=== PATIENT | male | born 1950 | race Caucasian/White ===

== ENCOUNTER 2019-03-12 09:19 | Inpatient (IN) | payer MEDICARE ==
[~2019-03-12] VITALS: Ht 185.4 cm; Wt 74.0 kg
[2019-03-12 10:00] LABS: BASOPHILS # (AUTO) 0.1 X10'3 (0-0.2); BASOPHILS % (AUTO) 1.3 % (0-1); EOSINOPHILS # (AUTO) 0.2 X10'3 (0-0.9); EOSINOPHILS % (AUTO) 3.1 % (0-6); HEMATOCRIT 40.9 % (42.0-52.0); HEMOGLOBIN 14.2 g/dl (14.0-17.9); LYMPHOCYTES # (AUTO) 2.8 X10'3 (1.1-4.8); LYMPHOCYTES % (AUTO) 37.4 % (21-51); MEAN CORPUSCULAR HEMOGLOBIN 31.4 PG (27.0-31.0); MEAN CORPUSCULAR HGB CONC 34.7 g/dL (33.0-36.5); MEAN CORPUSCULAR VOLUME 90.5 FL (78-98); MEAN PLATELET VOLUME 7.4 FL (7.4-10.4); MONOCYTES # (AUTO) 0.5 X10'3 (0-0.9); MONOCYTES % (AUTO) 6.2 % (2-12); PLATELET COUNT 377 X10'3 (140-440); RED BLOOD COUNT 4.52 X10'6 (4.70-6.10); RED CELL DISTRIBUTION WIDTH 12.4 % (11.5-14.5); WHITE BLOOD COUNT 7.6 X10'3 (4.5-11.0)
[2019-03-12 10:12] LABS: PARTIAL THROMBOPLASTIN TIME 34 SECONDS (22-32)
[2019-03-12 10:14] LABS: ALANINE AMINOTRANSFERASE 26 U/L (12-78); ALBUMIN 3.8 G/DL (3.4-5.0); ALKALINE PHOSPHATASE 96 IU/L (46-116); ANION GAP 8 (8-16); ASPARTATE AMINO TRANSFERASE 27 U/L (10-37); BILIRUBIN,TOTAL 0.5 MG/DL (0.1-1.0); BLOOD UREA NITROGEN 16 MG/DL (7-18); BUN/CREATININE RATIO 12.5 (5.4-32.0); CALCIUM 8.7 MG/DL (8.5-10.1); CHLORIDE 91 MMOL/L (99-107); CREATININE 1.28 MG/DL (0.60-1.10); GLUCOSE 88 MG/DL (70-104); POTASSIUM 3.2 MMOL/L (3.5-5.1); SODIUM 126 MMOL/L (135-145); TOTAL PROTEIN 7.7 G/DL (6.4-8.2); eGFR 56 ML/MIN
[2019-03-12] MEDS ORDERED: normal saline 1000ML IV soln IV ONE (10:25)
[2019-03-12] MEDS ORDERED: dexamethasone sod phosphate 10mg/ml inj IV STA (11:05)
[2019-03-12] MEDS ORDERED: diphenhydrAMINE 50 mg/ml inj IV ONE (11:05)
[2019-03-12] MEDS ORDERED: proCHLORperazine 10 MG/2 ml inj IV ONE (11:05)
[2019-03-12] MEDS ORDERED: potassium Cl oral solution 20 MEQ/15 ML PO ONE (11:55)
[2019-03-12] MEDS ORDERED: LEVO50TA8 PO (12:12)
[2019-03-12] MEDS ORDERED: PRED5TAB PO (12:12)
[2019-03-12] MEDS ORDERED: FERR325T32 PO (12:12)
[2019-03-12] MEDS ORDERED: potassium Cl 40MEQ/NS 500ml 500 ML IV PRN ×2 (12:35)
[2019-03-12] MEDS ORDERED: magnesium Cl slow-release 64mg tablet PO PRN (12:35)
[2019-03-12] MEDS ORDERED: HYDROcodone/acetaminophen 5mg/325mg tablet PO PRN (12:35)
[2019-03-12] MEDS ORDERED: morphine 2 MG/ML inj. syringe IV PRN (12:35)
[2019-03-12] MEDS ORDERED: ondansetron/PF 4mg/2ml inj IV PRN (12:35)
[2019-03-12] MEDS ORDERED: diphenhydrAMINE 25mg capsule PO PRN (12:35)
[2019-03-12] MEDS ORDERED: magnesium 4gm in 100ml NS 100 ML IV PRN (12:35)
[2019-03-12] MEDS: K and/or MAG REPLACEMENT MC SCH (12:35)
[2019-03-12] MEDS ORDERED: mag hydrox/Alum hydrox/simeth 30ml oral suspension PO PRN (12:35)
[2019-03-12] MEDS ORDERED: magnesium hydroxide 30ml (MOM) UD suspension PO PRN (12:35)
[2019-03-12] MEDS ORDERED: acetaminophen 325mg tablet PO PRN ×2 (12:35)
[2019-03-12] MEDS ORDERED: potassium Cl 20 mEq SR tablet PO PRN ×2 (12:35)
[2019-03-12] MEDS ORDERED: bisacodyl 10mg suppository rectal RC PRN (12:35)
[2019-03-12] MEDS ORDERED: magnesium 2GM in 50ml NS 50 ML IV PRN (12:35)
[2019-03-12] MEDS ORDERED: HYDROcodone/acetaminophen 10/325mg tab PO PRN (12:35)
[2019-03-12] MEDS ORDERED: iohexol 300mg/ml 100ml inj. ONE (12:49)
[2019-03-12] MEDS: hydrocortisone sod succ/PF 100mg/2ml inj. IV SCH ×2 (13:09→19:36)
[2019-03-12 13:17] LABS: HEMOGLOBIN A1C 5.4 % (4.5-6.2)
--- NOTE | 2019-03-12 13:56 | NUR ---
Nurse at lunch, unable to give report. nurse to call down to ER for report.
[2019-03-12] MEDS ORDERED: hydrocortisone sod succ/PF 100mg/2ml inj. IV SCH (14:00)
[2019-03-12 14:16] LABS: CLARITY,URINE CLEAR (Clear); COLOR,URINE YELLOW (Yellow); GLUCOSE, URINE NEGATIVE (Neg); KETONES,URINE NEGATIVE (Neg); LEUKOCYTE ESTERASE ,URINE NEGATIVE (Neg); NITRITES, URINE NEGATIVE (Neg); OCCULT BLOOD,URINE TRACE-INTACT (Neg); PROTEIN,URINE NEGATIVE (Neg); UA COLLECTION TYPE CLN CATCH MIDSTREAM; UROBILINOGEN,URINE 0.2 E.U/dL (0.2-1.0)
[2019-03-12 14:23] LABS: MUCUS STRANDS FEW /LPF (Neg); SQUAMOUS EPITHELIAL CELL,UR FEW /LPF (FEW)
[2019-03-12 14:24] LABS: BACTERIA,URINE FEW /HPF (Neg); RBC,URINE 0-2 /HPF (0-2); WBC,URINE 0-4 /HPF (0-4)
--- NOTE | 2019-03-12 15:01 | NUR ---
Patient in room [facility]. I have received report from jaret WATTERS and had the opportunity to ask questions and assume patient care.
[2019-03-12 15:02] VITALS: BP 142/63
[2019-03-12] MEDS: normal saline 1000ml 1,000 ML IV SCH (15:28)
[2019-03-12 15:30] VITALS: BP 125/73
[2019-03-12 17:48] VITALS: BP_SYST 132; BP_SYST 138; BP_SYST 143; BP_DIAS 77; BP_DIAS 80; BP_DIAS 83
--- NOTE | 2019-03-12 18:30 | NUR ---
Patient in room [facility]. I have received report from Viry WATTERS and had the opportunity to ask questions and assume patient care.
--- NOTE | 2019-03-12 18:30 | NUR ---
Patient in room [facility]. I have received report from JANENE Baires and had the opportunity to ask questions and assume patient care. Addendum: 03/13/19 at 0001 by Last Huber RN Amended: Links added.
--- NOTE | 2019-03-12 18:42 | NUR ---
patient went for CT scan with contrast. saw DR Dorantes. c/o multiple voids. Slight burning. Dr Dorantes informed. Report given to Vikas WATTERS
[2019-03-12] MEDS ORDERED: meclizine 12.5mg tablet PO ONE (18:45)
[2019-03-12] MEDS ORDERED: meclizine 12.5mg tablet PO PRN (18:45)
[2019-03-12 19:35] VITALS: BP 138/78
[2019-03-12] MEDS ORDERED: nicotine 21mg patch - 24 hr TD SCH (20:00)
[2019-03-13 00:46] VITALS: BP 145/88
[2019-03-13] MEDS: hydrocortisone sod succ/PF 100mg/2ml inj. IV SCH ×2 (01:24→07:36)
[2019-03-13] MEDS: normal saline 1000ml 1,000 ML IV SCH ×2 (01:37→08:33)
[2019-03-13 05:19] LABS: HEMOGLOBIN 14.2 g/dl (14.0-17.9); WHITE BLOOD COUNT 10.2 X10'3 (4.5-11.0)
[2019-03-13 05:21] LABS: HEMATOCRIT 40.1 % (42.0-52.0); MEAN CORPUSCULAR HEMOGLOBIN 31.8 PG (27.0-31.0); MEAN CORPUSCULAR HGB CONC 35.5 g/dL (33.0-36.5); MEAN CORPUSCULAR VOLUME 89.6 FL (78-98); MEAN PLATELET VOLUME 7.8 FL (7.4-10.4); PLATELET COUNT 342 X10'3 (140-440); RED BLOOD COUNT 4.48 X10'6 (4.70-6.10); RED CELL DISTRIBUTION WIDTH 12.5 % (11.5-14.5)
[2019-03-13 05:47] LABS: ALANINE AMINOTRANSFERASE 25 U/L (12-78); ALBUMIN 3.6 G/DL (3.4-5.0); ALBUMIN/GLOBULIN RATIO 0.9 (1.1-1.5); ALKALINE PHOSPHATASE 90 IU/L (46-116); ANION GAP 6 (8-16); ASPARTATE AMINO TRANSFERASE 24 U/L (10-37); BILIRUBIN,TOTAL 0.4 MG/DL (0.1-1.0); BLOOD UREA NITROGEN 16 MG/DL (7-18); BUN/CREATININE RATIO 13.4 (5.4-32.0); CHLORIDE 100 MMOL/L (99-107); CHOL/HDL RATIO 5.8 (0.00-4.99); CHOLESTEROL 327 MG/DL (0-200); CREATININE 1.19 MG/DL (0.60-1.10); GLUCOSE 120 MG/DL (70-104); HDL CHOLESTEROL 56 MG/DL (35-60); LDL CHOLESTEROL 271 MG/DL (50-100); MAGNESIUM 2.3 MG/DL (1.5-2.4); SODIUM 133 MMOL/L (135-145); TOTAL CARBON DIOXIDE 26.9 MMOL/L (24-32); TOTAL PROTEIN 7.4 G/DL (6.4-8.2); TRIGLYCERIDES 30 MG/DL (20-135); eGFR 61 ML/MIN
--- NOTE | 2019-03-13 06:13 | NUR ---
Problems reprioritized. Patient report given, questions answered & plan of care reviewed with JANENE Baires. Addendum: 03/13/19 at 0613 by Last Huber RN Amended: Links added.
[2019-03-13 06:18] LABS: TOTAL CELLS COUNTED 100
[2019-03-13 06:19] LABS: PLATELET ESTIMATE NORMAL
[2019-03-13] MEDS ORDERED: levoTHYROXINE 25mcg tablet PO SCH (07:00)
[2019-03-13] MEDS: K and/or MAG REPLACEMENT MC SCH (07:52)
[2019-03-13] MEDS ORDERED: non-formulary drug (Levothyroxine Sodium 1 TAB) PO SCH (08:00)
[2019-03-13] MEDS ORDERED: ferrous sulfate 325mg tablet PO SCH (08:00)
[2019-03-13] MEDS ORDERED: enoxaparin 40mg/0.4ml syringe SUBCUT SCH (08:00)
[2019-03-13 09:12] LABS: URINE AMPHETAMINE SCREEN NEGATIVE (Neg); URINE BARBITUATE SCREEN NEGATIVE (Neg); URINE BENZODIAZEPINES SCREEN NEGATIVE (Neg); URINE CANNABINOID SCREEN POSITIVE (Neg); URINE COCAINE SCREEN NEGATIVE (Neg); URINE METHADONE SCREEN NEGATIVE (Neg); URINE OPIATE SCREEN NEGATIVE (Neg); URINE PHENCYCLIDINE SCREEN NEGATIVE (Neg)
--- NOTE | 2019-03-13 11:35 | NUR ---
Student documentation: I have reviewed interventions, assessments performed and documented by MARÍA Scott [facility].
[2019-03-13] MEDS ORDERED: MECL12.584 PO (11:50)
[2019-03-13] MEDS ORDERED: NICO-687 TD (11:50)
--- NOTE | 2019-03-13 12:08 | NUR ---
Malnutrition consult: Pt with no prior visits for wt hx however patient's current wt is appropriate for age with BMI of 21.5. Pt currently on a regular diet with documented 100% PO intake meeting nutrient needs. Pt with no documented decrease in muscle strength or edema. Pt currently does not meet criteria for malnutrition. Will continue to follow. Addendum: 03/13/19 at [address] Amended: Links added.
--- NOTE | 2019-03-13 13:15 | NUR ---
patient would not wait for dr mercado to view report of carotid studies as ride was present. Dr mercado had been paged prior to this will page again to inform Dr Mercado.
[2019-03-13 13:22] VITALS: BP 130/73
--- NOTE | 2019-03-13 13:30 | NUR ---
patient seen by Dr Peacock is for discharge. All DC instructions given to patient and daughter. Appears stable for DC. DC home via private car with daughter 1330hrs .
--- NOTE | 2019-03-13 13:45 | NUR ---
Dr mercado viewed results of Carotid artery study. Patient ok to be DC
[2019-03-13] MEDS ORDERED: ATOR20TA66 PO (17:52)
== END 2019-03-13 13:30 | disposition home or self-care (01) | DRG 641 ==
LOC: ER 09:20 → SUR 3N 14:46 → CMPBEDREQ 20:09
PROVIDERS: ADMIT Family Medicine; ATTEND Family Medicine
PROC: BW211ZZ Computerized Tomography (CT Scan) of Abdomen and Pelvis using Low Osmolar Contrast (ICD-10-PCS; principal; 2019-03-12)
PROC: BW38YZZ Magnetic Resonance Imaging (MRI) of Head using Other Contrast (ICD-10-PCS; 2019-03-13)
DX: E87.1 Hypo-osmolality and hyponatremia (principal); E27.1 Primary adrenocortical insufficiency; E86.0 Dehydration; R42 Dizziness and giddiness; E87.6 Hypokalemia; D64.9 Anemia, unspecified; E03.9 Hypothyroidism, unspecified; H55.00 Unspecified nystagmus; F12.90 Cannabis use, unspecified, uncomplicated; F17.210 Nicotine dependence, cigarettes, uncomplicated; Z60.2 Problems related to living alone; Z82.49 Family history of ischemic heart disease and other diseases of the circulatory system; Z71.6 Tobacco abuse counseling
CPT/HCPCS: 36415; 70450; 70551; 71045; 72141; 74177; 80053; 80061; 80305; 81001; 82948; 83036; 83735; 84100; 84443; 84484; 85025; 85610; 85730; 87040; 87070; 87088; 93005; 93306; 93880; 96361; 96374; 96375; 99285; G0378; J0780; J1100; J1200; J1650; J1720; J7030; J8597; Q9967

== ENCOUNTER 2019-07-15 10:54 | Inpatient (IN) | payer MEDICARE, OTHER ==
[~2019-07-15] VITALS: Ht 185.4 cm; Wt 69.0 kg
[~2019-07-15 10:54] MED LIST: ATOR20TA66 PO; FERR325T32 PO; LEVO50TA8 PO; MECL12.584 PO; NICO-687 TD; PRED5TAB PO
[2019-07-15] MEDS ORDERED: LIDOcaine 2% 10ml TOPICAL JELLY (Urojet) MM ONE (12:05)
[2019-07-15] MEDS ORDERED: normal saline 1000ML IV soln IVB ONE ×2 (12:05→12:30)
[2019-07-15] MEDS ORDERED: ondansetron/PF 4mg/2ml inj IV ONE (12:05)
[2019-07-15] MEDS: morphine 4 MG/ML inj SYRINge IV PRN ×2 (12:12→12:46)
[2019-07-15 12:15] LABS: ALANINE AMINOTRANSFERASE 43 U/L (12-78); ALBUMIN/GLOBULIN RATIO 1.1 (1.1-1.5); ALKALINE PHOSPHATASE 77 IU/L (46-116); ANION GAP 11 (8-16); ASPARTATE AMINO TRANSFERASE 123 U/L (10-37); BLOOD UREA NITROGEN 18 MG/DL (7-18); BUN/CREATININE RATIO 13.5 (5.4-32.0); CHLORIDE 76 MMOL/L (99-107); CREATININE 1.33 MG/DL (0.60-1.10); GLUCOSE 80 MG/DL (70-104); POTASSIUM 3.5 MMOL/L (3.5-5.1); TOTAL PROTEIN 7.5 G/DL (6.4-8.2); eGFR 54 ML/MIN
[2019-07-15 12:23] LABS: SODIUM 111 MMOL/L (135-145)
[2019-07-15 12:36] LABS: BASOPHILS # (AUTO) 0.1 X10'3 (0-0.2); BASOPHILS % (AUTO) 0.8 % (0-1); EOSINOPHILS # (AUTO) 0.1 X10'3 (0-0.9); EOSINOPHILS % (AUTO) 1.5 % (0-6); HEMATOCRIT 34.9 % (42.0-52.0); HEMOGLOBIN 12.9 g/dl (14.0-17.9); LYMPHOCYTES # (AUTO) 1.9 X10'3 (1.1-4.8); LYMPHOCYTES % (AUTO) 24.8 % (21-51); MEAN CORPUSCULAR HEMOGLOBIN 31.6 PG (27.0-31.0); MEAN CORPUSCULAR VOLUME 85.3 FL (78-98); MONOCYTES # (AUTO) 0.6 X10'3 (0-0.9); MONOCYTES % (AUTO) 7.4 % (2-12); NEUTROPHILS # (AUTO) 5.1 X10'3 (1.8-7.7); NEUTROPHILS % (AUTO) 65.5 % (42-75); PLATELET COUNT 330 X10'3 (140-440); RED BLOOD COUNT 4.09 X10'6 (4.70-6.10); RED CELL DISTRIBUTION WIDTH 12.3 % (11.5-14.5); WHITE BLOOD COUNT 7.7 X10'3 (4.5-11.0)
[2019-07-15 12:51] LABS: PLATELET ESTIMATE NORMAL; SPHEROCYTES 1+
[2019-07-15 12:55] LABS: CLARITY,URINE CLEAR (Clear); COLOR,URINE YELLOW (Yellow); GLUCOSE, URINE NEGATIVE (Neg); KETONES,URINE 40 mg/dl (Neg); LEUKOCYTE ESTERASE ,URINE NEGATIVE (Neg); NITRITES, URINE NEGATIVE (Neg); OCCULT BLOOD,URINE MODERATE (Neg); PROTEIN,URINE NEGATIVE (Neg); UROBILINOGEN,URINE 0.2 E.U/dL (0.2-1.0)
[2019-07-15 13:12] LABS: UA COLLECTION TYPE CLN CATCH MIDSTREAM
[2019-07-15 13:23] LABS: WBC,URINE 0-4 /HPF (0-4)
[2019-07-15 13:25] LABS: BACTERIA,URINE NONE SEEN /HPF (Neg); MUCUS STRANDS FEW /LPF (Neg); SQUAMOUS EPITHELIAL CELL,UR FEW /LPF (FEW); TRANSITIONAL EPI CELLS,URINE MODERATE /HPF
[2019-07-15] MEDS ORDERED: tamsulosin 0.4mg capsule PO SCH (13:35)
[2019-07-15] MEDS ORDERED: potassium Cl 20 mEq SR tablet PO PRN ×2 (14:05)
[2019-07-15] MEDS ORDERED: mag hydrox/Alum hydrox/simeth 30ml oral suspension PO PRN (14:05)
[2019-07-15] MEDS ORDERED: magnesium Cl slow-release 64mg tablet PO PRN (14:05)
[2019-07-15] MEDS ORDERED: potassium CL 10mEq/100ml bag 100 ML IV PRN ×2 (14:05)
[2019-07-15] MEDS ORDERED: magnesium hydroxide 30ml (MOM) UD suspension PO PRN (14:05)
[2019-07-15] MEDS ORDERED: acetaminophen 325mg tablet PO PRN ×2 (14:05)
[2019-07-15] MEDS ORDERED: HYDROcodone/acetaminophen 5mg/325mg tablet PO PRN (14:05)
[2019-07-15] MEDS ORDERED: ondansetron/PF 4mg/2ml inj IV PRN (14:05)
[2019-07-15] MEDS ORDERED: magnesium 4gm in 100ml NS 100 ML IV PRN (14:05)
[2019-07-15] MEDS ORDERED: magnesium 2GM in 50ml NS 50 ML IV PRN (14:05)
[2019-07-15] MEDS ORDERED: bisacodyl 10mg suppository rectal RC PRN (14:05)
--- NOTE | 2019-07-15 14:26 | NUR ---
NATHALY greenberg at bedside.
[2019-07-15] MEDS: normal saline 1000ml 1,000 ML IV SCH ×2 (15:18→20:36)
[2019-07-15] MEDS: fludrocortisone acetate 0.1mg tablet PO SCH (15:18)
[2019-07-15 15:45] VITALS: BP 134/69
--- NOTE | 2019-07-15 15:52 | NUR ---
pt arrived to 357A from ER. Pt walked to bed from stretcher, unsteady on his feet. Slighty confused but alter and oriented to self, place, and situation. Upon arrival pt threw up clear emesis. Daughter at bedside states possibly due to Morphine. Zofran administered with positive result. Pt c/o pain 04/28 of penis. Will continue to monitor.
[2019-07-15 18:00] VITALS: BP 127/68
--- NOTE | 2019-07-15 18:19 | NUR ---
Problems reprioritized. Patient report given, questions answered & plan of care reviewed with JANENE Lunsford.
--- NOTE | 2019-07-15 18:34 | NUR ---
Patient in room [facility]. I have received report from JANENE Grissom and had the opportunity to ask questions and assume patient care.
[2019-07-15] MEDS: tamsulosin 0.4mg capsule PO SCH (20:30)
[2019-07-15] MEDS ORDERED: temazepam 15mg capsule PO PRN (21:00)
[2019-07-15] MEDS: HYDROcodone/acetaminophen 10/325mg tab PO PRN (22:00)
[2019-07-16 00:32] VITALS: BP 121/70
[2019-07-16] MEDS: normal saline 1000ml 1,000 ML IV SCH ×2 (05:48→14:45)
--- NOTE | 2019-07-16 05:59 | NUR ---
Problems reprioritized. Patient report given, questions answered & plan of care reviewed with JANENE Roa.
[2019-07-16 06:01] LABS: HEMATOCRIT 33.2 % (42.0-52.0); HEMOGLOBIN 12.4 g/dl (14.0-17.9); MEAN CORPUSCULAR HGB CONC 37.3 g/dL (33.0-36.5); MEAN CORPUSCULAR VOLUME 85.7 FL (78-98); MEAN PLATELET VOLUME 7.8 FL (7.4-10.4); PLATELET COUNT 271 X10'3 (140-440); RED BLOOD COUNT 3.87 X10'6 (4.70-6.10); RED CELL DISTRIBUTION WIDTH 12.2 % (11.5-14.5); WHITE BLOOD COUNT 4.7 X10'3 (4.5-11.0)
--- NOTE | 2019-07-16 06:14 | NUR ---
Patient in room [facility]. I have received report from JANENE ZIEGLER and had the opportunity to ask questions and assume patient care.
[2019-07-16 06:18] LABS: ALBUMIN 3.3 G/DL (3.4-5.0); ANION GAP 9 (8-16); BLOOD UREA NITROGEN 9 MG/DL (7-18); BUN/CREATININE RATIO 8.2 (5.4-32.0); CALCIUM 8.2 MG/DL (8.5-10.1); CHLORIDE 85 MMOL/L (99-107); GLUCOSE 66 MG/DL (70-104); MAGNESIUM 1.9 MG/DL (1.5-2.4); POTASSIUM 3.7 MMOL/L (3.5-5.1); eGFR 67 ML/MIN
[2019-07-16 06:42] LABS: SODIUM 119 MMOL/L (135-145)
[2019-07-16 07:00] VITALS: BP 117/54
[2019-07-16] MEDS: fludrocortisone acetate 0.1mg tablet PO SCH (07:41)
[2019-07-16] MEDS: levoTHYROXINE 25mcg tablet PO SCH (07:41)
[2019-07-16] MEDS: predniSONE 5mg tablet PO SCH (07:41)
[2019-07-16] MEDS: ferrous sulfate 325mg tablet PO SCH (07:41)
[2019-07-16] MEDS: enoxaparin 40mg/0.4ml syringe SQ SCH (07:42)
[2019-07-16] MEDS: K and/or MAG REPLACEMENT MC SCH (07:50)
[2019-07-16] MEDS ORDERED: non-formulary drug (Levothyroxine Sodium 1 TAB) PO SCH (08:00)
[2019-07-16] MEDS: HYDROcodone/acetaminophen 10/325mg tab PO PRN ×2 (12:01→19:49)
[2019-07-16 12:12] VITALS: BP 102/60
[2019-07-16] MEDS ORDERED: iohexol 300mg/ml 100ml inj. ONE ×2 (16:36→17:23)
--- NOTE | 2019-07-16 18:21 | NUR ---
Problems reprioritized. Patient report given, questions answered & plan of care reviewed with FACUNDO Lenz RN.
--- NOTE | 2019-07-16 18:29 | NUR ---
Patient in room [facility]. I have received report from JANENE Galeana and had the opportunity to ask questions and assume patient care. Addendum: 07/16/19 at 1829 by Arianne Brown RN Amended: Links added.
[2019-07-16 20:00] VITALS: BP 109/68
[2019-07-16] MEDS: tamsulosin 0.4mg capsule PO SCH (20:24)
[2019-07-16 23:27] VITALS: BP 158/86
[2019-07-17] VITALS: BP 158/86
[2019-07-17] MEDS: HYDROcodone/acetaminophen 10/325mg tab PO PRN ×2 (01:10→21:58)
[2019-07-17 05:44] LABS: HEMATOCRIT 35.5 % (42.0-52.0); HEMOGLOBIN 12.8 g/dl (14.0-17.9); MEAN CORPUSCULAR HEMOGLOBIN 31.6 PG (27.0-31.0); MEAN CORPUSCULAR HGB CONC 36.1 g/dL (33.0-36.5); MEAN CORPUSCULAR VOLUME 87.5 FL (78-98); MEAN PLATELET VOLUME 7.9 FL (7.4-10.4); PLATELET COUNT 287 X10'3 (140-440); RED BLOOD COUNT 4.05 X10'6 (4.70-6.10); RED CELL DISTRIBUTION WIDTH 12.7 % (11.5-14.5); WHITE BLOOD COUNT 4.1 X10'3 (4.5-11.0)
[2019-07-17 06:10] LABS: ALBUMIN 3.4 G/DL (3.4-5.0); ANION GAP 9 (8-16); BLOOD UREA NITROGEN 6 MG/DL (7-18); BUN/CREATININE RATIO 5.8 (5.4-32.0); CHLORIDE 96 MMOL/L (99-107); CREATININE 1.03 MG/DL (0.60-1.10); GLUCOSE 82 MG/DL (70-104); MAGNESIUM 2.1 MG/DL (1.5-2.4); PHOSPHORUS 2.6 MG/DL (2.3-4.5); POTASSIUM 3.5 MMOL/L (3.5-5.1); SODIUM 129 MMOL/L (135-145); TOTAL CARBON DIOXIDE 24.2 MMOL/L (24-32); eGFR 72 ML/MIN
--- NOTE | 2019-07-17 06:39 | NUR ---
Problems reprioritized. Patient report given, questions answered & plan of care reviewed with JANENE Rivera.
[2019-07-17 07:00] VITALS: BP 109/61
[2019-07-17] MEDS: K and/or MAG REPLACEMENT MC SCH (08:00)
[2019-07-17] MEDS: ferrous sulfate 325mg tablet PO SCH (08:26)
[2019-07-17] MEDS: fludrocortisone acetate 0.1mg tablet PO SCH (08:27)
[2019-07-17] MEDS: enoxaparin 40mg/0.4ml syringe SQ SCH (08:27)
[2019-07-17] MEDS: predniSONE 5mg tablet PO SCH (08:27)
[2019-07-17] MEDS: levoTHYROXINE 25mcg tablet PO SCH (08:29)
[2019-07-17 12:00] VITALS: BP 126/60
--- NOTE | 2019-07-17 14:03 | NUR ---
PAGER ID: [phone] MESSAGE: [phone] Giorgio Harvey Is pt. going home tomorrow with F/c? Do you want us to try and take it out? Nicole [phone]
--- NOTE | 2019-07-17 17:23 | NUR ---
Blakely removed per order. Pt tolerated well.
[2019-07-17 18:00] VITALS: BP 118/67
--- NOTE | 2019-07-17 18:32 | NUR ---
Problems reprioritized. Patient report given, questions answered & plan of care reviewed with Adela WATTERS.
--- NOTE | 2019-07-17 18:35 | NUR ---
Patient in room [facility]. I have received report from JANENE Rivera and had the opportunity to ask questions and assume patient care. Addendum: 07/17/19 at 1835 by Arianne Brown RN Amended: Links added.
[2019-07-17] MEDS: tamsulosin 0.4mg capsule PO SCH (20:09)
[2019-07-18] VITALS: BP 139/68
[2019-07-18 05:18] LABS: ALBUMIN 3.3 G/DL (3.4-5.0); ANION GAP 8 (8-16); BLOOD UREA NITROGEN 8 MG/DL (7-18); BUN/CREATININE RATIO 7.3 (5.4-32.0); CALCIUM 8.6 MG/DL (8.5-10.1); CHLORIDE 96 MMOL/L (99-107); GLUCOSE 102 MG/DL (70-104); MAGNESIUM 1.9 MG/DL (1.5-2.4); MEAN CORPUSCULAR HEMOGLOBIN 31.5 PG (27.0-31.0); MEAN PLATELET VOLUME 7.8 FL (7.4-10.4); PHOSPHORUS 2.9 MG/DL (2.3-4.5); PLATELET COUNT 279 X10'3 (140-440); POTASSIUM 3.6 MMOL/L (3.5-5.1); SODIUM 131 MMOL/L (135-145); TOTAL CARBON DIOXIDE 26.7 MMOL/L (24-32); WHITE BLOOD COUNT 4.5 X10'3 (4.5-11.0); eGFR 67 ML/MIN
[2019-07-18 06:12] LABS: HEMOGLOBIN 12.2 g/dl (14.0-17.9); MEAN CORPUSCULAR VOLUME 90.8 FL (78-98); RED BLOOD COUNT 3.85 X10'6 (4.70-6.10)
[2019-07-18 06:13] LABS: MEAN CORPUSCULAR HGB CONC 34.7 g/dL (33.0-36.5)
--- NOTE | 2019-07-18 06:31 | NUR ---
Problems reprioritized. Patient report given, questions answered & plan of care reviewed with JANENE Rivera.
[2019-07-18 07:01] VITALS: BP 130/79
[2019-07-18] MEDS: enoxaparin 40mg/0.4ml syringe SQ SCH (07:13)
[2019-07-18] MEDS: predniSONE 5mg tablet PO SCH (07:13)
[2019-07-18] MEDS: ferrous sulfate 325mg tablet PO SCH (07:13)
[2019-07-18] MEDS: levoTHYROXINE 25mcg tablet PO SCH (07:13)
[2019-07-18] MEDS: K and/or MAG REPLACEMENT MC SCH (07:14)
[2019-07-18] MEDS: fludrocortisone acetate 0.1mg tablet PO SCH (07:19)
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
--- NOTE | 2019-07-18 07:38 | NUR ---
PAGER ID: [phone] MESSAGE: [phone] Giorgio Harvey Pt showing increased confusion in comparison to yesterday. Unable to follow fingers. Please view neuro physical asses. with linked note and delirium asses. Thank you! Nicole 1922
--- NOTE | 2019-07-18 07:54 | NUR ---
returned page. Order to continue to monitor orientation.
[2019-07-18] MEDS ORDERED: tamsulosin capsule PO (10:03)
[2019-07-18] MEDS ORDERED: FLO0.1T PO (10:03)
[2019-07-18 11:10] LABS: PSA, FREE 0.03 ng/mL
--- NOTE | 2019-07-18 11:32 | NUR ---
DISCHARGE UPLOADING. WAITING ON MEDICATIONS FROM [facility] AND FOR PT.'S DAUGHTER TO PICK HIM UP.
--- NOTE | 2019-07-18 13:43 | NUR ---
Pt. has received medications- still waiting on transport for pt.
--- NOTE | 2019-07-18 14:00 | NUR ---
Discharge paperwork reviewed with pt. Pt. aware of two new medications and had them delivered [facility]. IV was DC'd, pressure bandage applied, no s/sx bleeding noted. Tele DC'd, cleaned, returned. Pt. aware to come back to ER if any persisting symptoms. Was very anxious to leave. This nurse was on the phone giving report to a facility for another pt. transferring, and the pt. spoke with some other staff to see if he could go down to the lobby and wait for his granddaughter to pick him up. Left his discharge paperwork in room. Charge nurse and community coordinator for high school aware.
== END 2019-07-18 13:42 | disposition home or self-care (01) | DRG 682 ==
LOC: ER 10:55 → SUR 3N 15:41 → OBSVTOIN 15:41 → CMPBEDREQ 19:27
PROVIDERS: ADMIT Family Medicine; ATTEND Family Medicine
PROC: BW211ZZ Computerized Tomography (CT Scan) of Abdomen and Pelvis using Low Osmolar Contrast (ICD-10-PCS; principal; 2019-07-16)
DX: N17.9 Acute kidney failure, unspecified (principal); G93.41 Metabolic encephalopathy; E27.1 Primary adrenocortical insufficiency; E87.1 Hypo-osmolality and hyponatremia; N13.8 Other obstructive and reflux uropathy; D64.9 Anemia, unspecified; E03.9 Hypothyroidism, unspecified; N40.1 Benign prostatic hyperplasia with lower urinary tract symptoms; R74.0 Nonspecific elevation of levels of transaminase and lactic acid dehydrogenase [LDH]
CPT/HCPCS: 36415; 74177; 80048; 80053; 81001; 83735; 84100; 84153; 84154; 85025; 85027; 85610; 87081; 96374; 96375; 99285; G0378; J1650; J2270; J2405; J7030; J7512; Q9967

== ENCOUNTER 2023-09-06 22:22 | Emergency (ER) | payer MEDICARE, OTHER ==
[~2023-09-06] VITALS: Ht 182.9 cm; Wt 71.2 kg
[~2023-09-06 22:22] MED LIST changes: -ATOR20TA66 PO; +ATOR40TA72 PO; +CALC-1008 PO; +DIVA125T2 PO; +FERR325T28 PO; -FERR325T32 PO; +FLO0.1T PO; +HYDR5TAB14 PO; +MAGN64TA10 PO; -MECL12.584 PO; +MELA3TAB39 PO; +MELATONIN GUMMIES PO; +NICO-631 TD; -NICO-687 TD; +OLAN10TA73 PO; -PRED5TAB PO; +SODI100035 PO; +VITC500T PO; +ZIPR20CA12 PO
[2023-09-06 22:23] VITALS: BP 177/88; PULSE 93; RESP 16; TEMP 99.8; O2SAT 97
== END 2023-09-07 00:44 | disposition left against medical advice (07) ==
LOC: ER 22:23
DX: F03.90 Unspecified dementia, unspecified severity, without behavioral disturbance, psychotic disturbance, mood disturbance, and anxiety (principal); Z53.21 Procedure and treatment not carried out due to patient leaving prior to being seen by health care provider
CPT/HCPCS: 99281

== ENCOUNTER 2024-04-12 17:02 | Emergency (ER) | payer MEDICARE, MEDICAID ==
[~2024-04-12] VITALS: Ht 185.4 cm; Wt 86.7 kg
[2024-04-12 17:05] VITALS: TEMP 98.6
[2024-04-12 17:28] VITALS: PULSE 79; RESP 18; O2SAT 98
[2024-04-12 17:46] VITALS: BP 187/112
[2024-04-12] MEDS ORDERED: LISI20TA28 PO (17:50)
== END 2024-04-12 18:00 | disposition home or self-care (01) ==
LOC: ER 17:03
DX: I10 Essential (primary) hypertension (principal); E78.00 Pure hypercholesterolemia, unspecified; E03.9 Hypothyroidism, unspecified; Z79.899 Other long term (current) drug therapy
CPT/HCPCS: 99283

== ENCOUNTER 2025-08-05 19:51 | Emergency (ER) | payer MEDICARE, MEDICAID ==
[~2025-08-05] VITALS: Ht 182.9 cm; Wt 81.0 kg
[~2025-08-05 19:51] MED LIST changes: -FLO0.1T PO; +FLUD0.1T2 PO
[2025-08-05 20:03] VITALS: BP 144/83; PULSE 76; RESP 18; O2SAT 98
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
[2025-08-05] MEDS: bacitracin 15gm ointment TP ONE (20:56)
[2025-08-05 21:06] VITALS: TEMP 97
== END 2025-08-05 21:07 | disposition home or self-care (01) ==
LOC: ER 19:53
DX: S21.112A Laceration without foreign body of left front wall of thorax without penetration into thoracic cavity, initial encounter (principal); S11.91XA Laceration without foreign body of unspecified part of neck, initial encounter; E03.9 Hypothyroidism, unspecified; E78.00 Pure hypercholesterolemia, unspecified; F03.A0 Unspecified dementia, mild, without behavioral disturbance, psychotic disturbance, mood disturbance, and anxiety; I10 Essential (primary) hypertension; X58.XXXA Exposure to other specified factors, initial encounter; Y93.89 Activity, other specified; Y92.89 Other specified places as the place of occurrence of the external cause; Y99.8 Other external cause status
CPT/HCPCS: 99282; A6258; A6402; A6449